=== PATIENT | male | born 1945 | race Caucasian/White ===

== ENCOUNTER → 2017-07-30 09:49 | Outpatient (CLI) | payer MEDICARE, BC, SELFPAY ==
[2017-07-30 12:31] LABS: Anion Gap 9 (5-15); BUN 21 mg/dL (7-18); BUN/Creat Ratio 19.4 RATIO (10-20); Calcium,Total 8.6 mg/dL (8.5-10.1); Chloride 107 mmol/L (98-107); Creatinine, Serum 1.08 mg/dL (0.70-1.30); EST Glomerular Filtration Rate 71 mL/min (>60); Est Glom Filt Rate - Afr Amer 86 mL/min (>60); Glucose 85 mg/dL (74-106); PSA,Total - Annual Screen 7.25 ng/mL (0.00-4.00); Potassium 3.3 mmol/L (3.5-5.1); Sodium Level 141 mmol/L (136-145)
== END ==
PROVIDERS: Family Provider Family Medicine; PCP Family Medicine; Visit Provider Family Medicine
DX: R97.20 Elevated prostate specific antigen [PSA] (principal); I10 Essential (primary) hypertension; Z12.5 Encounter for screening for malignant neoplasm of prostate
CPT/HCPCS: 36415; 80048; 84153; G0103

== ENCOUNTER → 2018-01-31 10:19 | Outpatient (CLI) | payer MEDICARE, BC, SELFPAY ==
[2018-01-31 12:34] LABS: Anion Gap 9 (5-15); BUN 16 mg/dL (7-18); BUN/Creat Ratio 13.4 RATIO (10-20); Chloride 106 mmol/L (98-107); Creatinine, Serum 1.19 mg/dL (0.70-1.30); EST Glomerular Filtration Rate 64 mL/min (>60); Est Glom Filt Rate - Afr Amer 77 mL/min (>60); Glucose 89 mg/dL (74-106); Potassium 3.5 mmol/L (3.5-5.1); Sodium Level 141 mmol/L (136-145)
== END ==
PROVIDERS: Family Provider Family Medicine; PCP Family Medicine; Visit Provider Family Medicine
DX: I10 Essential (primary) hypertension (principal)
CPT/HCPCS: 36415; 80048

== ENCOUNTER → 2019-02-01 09:52 | Outpatient (CLI) | payer MEDICARE, BC, SELFPAY ==
[2019-02-01 13:15] LABS: BUN 19 mg/dL (7-18); Creatinine, Serum 1.11 mg/dL (0.70-1.30); Glucose 79 mg/dL (74-106)
[2019-02-01 13:16] LABS: Anion Gap 10 (5-15); BUN/Creat Ratio 17.1 RATIO (10-20); Chloride 109 mmol/L (98-107); Cholesterol 144 mg/dL (200); EST Glomerular Filtration Rate 69 mL/min (>60); Est Glom Filt Rate - Afr Amer 83 mL/min (>60); High Density Lipoprotein 52 mg/dL; PSA,Total - Annual Screen 7.03 ng/mL (0.00-4.00); Potassium 3.5 mmol/L (3.5-5.1); Sodium Level 143 mmol/L (136-145); Triglycerides 100 mg/dL; Very Low Density Lipoprotein 20 mg/dL (5-40)
== END ==
PROVIDERS: Family Provider Family Medicine; PCP Family Medicine; Referring Provider Family Medicine; Visit Provider Family Medicine
DX: I10 Essential (primary) hypertension (principal); R97.20 Elevated prostate specific antigen [PSA]; Z12.5 Encounter for screening for malignant neoplasm of prostate
CPT/HCPCS: 36415; 80048; 80061; 84153; G0103

== ENCOUNTER → 2020-02-02 10:41 | Outpatient (CLI) | payer MEDICARE, BC, SELFPAY ==
[2020-02-02 13:04] LABS: Anion Gap 8 (5-15); BUN 16 mg/dL (7-18); BUN/Creat Ratio 13.7 RATIO (10-20); Chloride 111 mmol/L (98-107); Cholesterol 170 mg/dL (200); Creatinine, Serum 1.17 mg/dL (0.70-1.30); EST Glomerular Filtration Rate 65 mL/min (>60); Est Glom Filt Rate - Afr Amer 78 mL/min (>60); Glucose 113 mg/dL (74-106); High Density Lipoprotein 42 mg/dL; Potassium 2.8 mmol/L (3.5-5.1); Sodium Level 145 mmol/L (136-145); Triglycerides 233 mg/dL; Very Low Density Lipoprotein 47 mg/dL (5-40)
== END ==
PROVIDERS: PCP Family Medicine; Referring Provider Family Medicine; Visit Provider Family Medicine
DX: I10 Essential (primary) hypertension (principal); Z12.5 Encounter for screening for malignant neoplasm of prostate; R97.20 Elevated prostate specific antigen [PSA]
CPT/HCPCS: 36415; 80048; 80061; 84153; G0103

== ENCOUNTER → 2020-02-12 10:09 | Outpatient (CLI) | payer MEDICARE, BC, SELFPAY ==
[2020-02-12 12:38] LABS: Anion Gap 9 (5-15); BUN 15 mg/dL (7-18); BUN/Creat Ratio 12.5 RATIO (10-20); Calcium,Total 8.9 mg/dL (8.5-10.1); Chloride 108 mmol/L (98-107); Cholesterol 157 mg/dL (200); EST Glomerular Filtration Rate 63 mL/min (>60); Est Glom Filt Rate - Afr Amer 76 mL/min (>60); Glucose 94 mg/dL (74-106); High Density Lipoprotein 42 mg/dL; PSA,Total - Annual Screen 7.03 ng/mL (0.00-4.00); Potassium 3.2 mmol/L (3.5-5.1); Sodium Level 143 mmol/L (136-145); Triglycerides 159 mg/dL; Very Low Density Lipoprotein 32 mg/dL (5-40)
== END ==
PROVIDERS: PCP Family Medicine; Visit Provider Family Medicine
DX: I10 Essential (primary) hypertension (principal); R97.20 Elevated prostate specific antigen [PSA]; Z12.5 Encounter for screening for malignant neoplasm of prostate
CPT/HCPCS: 36415; 80048; 80061; 84153; G0103

== ENCOUNTER → 2020-02-26 10:42 | Outpatient (CLI) | payer MEDICARE, BC, SELFPAY ==
[2020-02-26 13:20] LABS: Anion Gap 5 (5-15); BUN 14 mg/dL (7-18); BUN/Creat Ratio 11.3 RATIO (10-20); Calcium,Total 9.3 mg/dL (8.5-10.1); Chloride 110 mmol/L (98-107); Creatinine, Serum 1.24 mg/dL (0.70-1.30); EST Glomerular Filtration Rate 61 mL/min (>60); Est Glom Filt Rate - Afr Amer 73 mL/min (>60); Glucose 90 mg/dL (74-106); Potassium 3.5 mmol/L (3.5-5.1); Sodium Level 143 mmol/L (136-145)
== END ==
PROVIDERS: PCP Family Medicine; Referring Provider Family Medicine; Visit Provider Family Medicine
DX: E87.6 Hypokalemia (principal)
CPT/HCPCS: 36415; 80048

== ENCOUNTER → 2020-07-26 09:55 | Outpatient (CLI) | payer MEDICARE, BC, SELFPAY ==
[2020-07-26 13:00] LABS: Anion Gap 5 (5-15); BUN 15 mg/dL (7-18); BUN/Creat Ratio 12.6 RATIO (10-20); Calcium,Total 9.1 mg/dL (8.5-10.1); Chloride 106 mmol/L (98-107); Creatinine, Serum 1.19 mg/dL (0.70-1.30); EST Glomerular Filtration Rate 63 mL/min (>60); Est Glom Filt Rate - Afr Amer 77 mL/min (>60); Glucose 83 mg/dL (74-106); Potassium 3.1 mmol/L (3.5-5.1); Sodium Level 140 mmol/L (136-145)
[2020-07-26 13:27] LABS: Microalbumin,Random Urine < 5.0 mg/L (NO RANGE EST.)
== END ==
PROVIDERS: PCP Family Medicine; Referring Provider Family Medicine; Visit Provider Family Medicine
DX: I10 Essential (primary) hypertension (principal); R97.20 Elevated prostate specific antigen [PSA]
CPT/HCPCS: 36415; 80048; 82043; 82570; 84153

== ENCOUNTER → 2020-08-09 08:17 | Outpatient (CLI) | payer MEDICARE, BC, SELFPAY ==
[2020-08-09 10:46] LABS: Anion Gap 4 (5-15); BUN 14 mg/dL (7-18); BUN/Creat Ratio 11.8 RATIO (10-20); Calcium,Total 9.1 mg/dL (8.5-10.1); Chloride 110 mmol/L (98-107); Creatinine, Serum 1.19 mg/dL (0.70-1.30); EST Glomerular Filtration Rate 63 mL/min (>60); Est Glom Filt Rate - Afr Amer 77 mL/min (>60); Glucose 91 mg/dL (74-106); PSA,Total- Diagnostic 7.54 ng/mL (0.0-4.0); Potassium 3.6 mmol/L (3.5-5.1); Sodium Level 142 mmol/L (136-145)
== END ==
PROVIDERS: PCP Family Medicine; Visit Provider Family Medicine
DX: R97.20 Elevated prostate specific antigen [PSA] (principal); I10 Essential (primary) hypertension
CPT/HCPCS: 36415; 80048; 84153

== ENCOUNTER 2021-01-06 13:42 | Emergency (ER) | payer MEDICARE, BC, SELFPAY ==
[2021-01-06 13:42] VITALS: BP 129/79; PULSE 72; RESP 20; TEMP 37.6; O2SAT 97; BMI 25.3
--- NOTE | 2021-01-06 15:40 | RAD_ITS ---
STUDY: X-RAY CHEST REASON FOR EXAM: Male, 75 years old. sob TECHNIQUE: Single AP portable view of the chest. COMPARISON: None. FINDINGS: Patchy alveolar opacities in both lungs consistent with bilateral pneumonia. There is no demonstrated pleural abnormality. Normal size heart. Normal mediastinum and ayesha. Normal visualized pulmonary arteries. Normal visualized aortic arch and descending thoracic aorta. Normal visualized thoracic spine. Normal visualized ribs, clavicles, and shoulders. There is no demonstrated abnormality of the visualized soft tissue structures of the upper abdomen. RAD/Chest 1 View (Portable) IMPRESSION: Patchy bilateral pneumonia. Electronically Signed: Lennox Huston MD at 16:01 EDT Tel , Service support ,
[2021-01-06 15:42] VITALS: PULSE 71; RESP 18; O2SAT 97
[2021-01-06 15:47] VITALS: RESP 18; O2SAT 97
--- NOTE | 2021-01-06 16:02 | EKG12_ITS ---
Test Reason : COUGH Blood Pressure : / mmHG Vent. Rate : 071 BPM Atrial Rate : 071 BPM P-R Int : 152 ms QRS Dur : 128 ms QT Int : 398 ms P-R-T Axes : -04 -35 106 degrees QTc Int : 432 ms Normal sinus rhythm Left axis deviation Left bundle branch block Abnormal ECG Confirmed by ABNER RAM, ANDRÉS ([id number]), editor dictionary ERIK SARGENT ([id number]) on 01/07/2021 1:52:22 PM Referred By: DEBORAH Confirmed By:ANDRÉS LEVINE MD
--- NOTE | 2021-01-06 16:03 | EX.ED.DYSGE1 ---
HPI History of Present Illness Chief Complaint: General Illness Narrative Narrative: Patient presenting with fever, chills, cough since Wednesday. Patient states he has had low-grade fevers with a T-max of 101.8. He states he only took something for a fever today and states he took Aleve prior to coming. Patient states he has decreased p.o. intake because he is just not hungry but is able to eat and drink without nausea or vomiting. He denies diarrhea. Patient denies any chest pain and he only feels short of breath when he is coughing. Patient does state that there is a sensitive spot on the top of his head that hurts when he coughs. He feels like it is tender to touch. Nobody in his family can see anything abnormal. He denies any head injury. Patient states that he also has been having urinary incontinence for the last couple of days. He denies dysuria. He states he has a history of BPH. Patient has been vaccinated for COVID-19 and has had no known sick contacts. [facility] Medical History Hypertension Home Medications Potassium Chloride 20 mg PO DAILY 03/27/13 [History Last Taken Unknown] Urinozinc 2 tab 03/27/13 [History Last Taken Unknown] amlodipine 5 mg PO DAILY 03/27/13 [History Last Taken Unknown] antiarthritic combination no.2 [Glucosamine-Chondroitin] 900 mg PO TID 03/27/13 [History Last Taken Unknown] ascorbic acid (vitamin C) [Vitamin C] 2,000 mg PO DAILY 03/27/13 [History Last Taken Unknown] cholecalciferol (vitamin D3) [Vitamin D] 2,000 unit PO DAILY 03/27/13 [History Last Taken Unknown] hydrochlorothiazide 25 mg PO DAILY 03/27/13 [History Last Taken Unknown] vitamin E (dl, acetate) 800 units PO DAILY 03/27/13 [History Last Taken Unknown] Allergy/AdvReac Type Severity Reaction Status Date / Time No Known Allergies Allergy Verified 12/16/20 12:43 Social History Smoking Status: Never smoker ROS ROS ED Constitutional Constitutional ED: Reports chills and fever(s) Eyes Eyes: Denies blurry vision or diplopia ENT ENT ED: Reports sore throat; Denies rhinorrhea Cardiovascular Cardiovascular: Denies chest pain or palpitations Respiratory/Chest Respiratory/Chest: Reports cough; Denies sputum Gastrointestinal Gastrointestinal: Denies abdominal pain, nausea or vomiting Genitourinary Genitourinary ED: Reports other Details: Urinary incontinence Musculoskeletal Musculoskeletal: Reports myalgias; Denies arthralgias, back pain or neck pain Integumentary Denies Abrasions or rash Neurologic Neurologic: Reports other Details: Painful spot at the top of head 1 coughing ; Denies paresthesias EXAM Physical Exam Const Vital Signs: 01/06/21 13:42 01/06/21 15:42 01/06/21 15:47 Temperature 99.7 F H Temperature Source Temporal Pulse Rate 72 71 Respiratory Rate 20 H 18 18 Blood Pressure 129/79 H Blood Pressure Mean 95 Pulse Ox 97 97 97 Oxygen Delivery Method Room Air Room Air 01/06/21 17:10 01/06/21 17:36 Temperature Temperature Source Pulse Rate 67 70 Respiratory Rate 16 17 Blood Pressure 157/78 H 157/84 H Blood Pressure Mean 104 Pulse Ox 95 96 Oxygen Delivery Method Room Air Positive well nourished General Appearance ED: NAD HEENT Reports moist mucous membranes HEENT Narrative: Tender area to the vertex of the scalp without cellulitic change, deformity. Negative for trauma Eyes PERRL and EOMs intact bilaterally Neck no lymphadenopathy and supple Resp normal respiratory effort and clear to auscultation bilaterally Cardio regular rate and regular rhythm GI normal to inspection, nondistended, normoactive bowel sounds Neuro oriented x3 and CN's II-XII intact bilaterally Sensorium / Orientation: alert Psych mental status grossly normal Skin no rashes or lesions noted and no wounds MDM MDM MDM Narrative Medical decision making narrative: Patient presenting with viral symptoms. He tested positive for COVID-19 today. Chest x-ray my interpretation shows bilateral pulmonary infiltrates. His lab work shows no leukocytosis. Hemoglobin hematocrit are stable. Platelets are normal. Patient is lymphopenic. Patient's creatinine is slightly increased at 1.33. Potassium 3.1. Other electrolytes are normal. LFTs are normal. Procalcitonin negative. I did check a urinalysis because of his urinary frequency and is just that his urine bacteria without leukocyte esterase or nitrites. This was sent for culture. Patient is within the timeframe for monoclonal antibodies and I did put a consult in for this. Patient will be given discharge instructions to follow-up for this. Currently the patient has normal vital signs and is maintaining O2 sats of 96-97 on room air and is not tachypneic. Patient counseled use ibuprofen and Tylenol alternating doses to control fevers. Encouraged to drink more fluids. I spoke with his daughter who will ensure that she has some way to measure how much he is actually drinking because he has been drinking less. I discussed at length with him how to measure the pulse oximeter monitoring and when to return. I spoke with the on-call physician for his primary care doctor Dr. Dennis Rodriguez to obtain close follow-up. He states he will put a note in the computer for a telehealth visit tomorrow the next day. Patient discharged home in stable condition. Current: 1. Dehydration 2. COVID-19 pneumonitis Lab Data Labs: Laboratory Results - last 24 hr 01/06/21 01/06/21 01/06/21 14:40 15:40 15:40 WBC 5.7 RBC 4.24 L Hgb 13.0 Hct 39.4 L MCV 92.9 MCH 30.7 MCHC 33.0 RDW Std Deviation 43.8 RDW Coeff of Lorenzo 12.8 Plt Count 130 L MPV 11.0 Immature Gran % (Auto) 0.300 Neut % (Auto) 74.8 H Lymph % (Auto) 13.4 L [place] % (Auto) 11.3 H Eos % (Auto) 0.0 Baso % (Auto) 0.2 Absolute Neuts (auto) 4.3 Absolute Lymphs (auto) 0.77 L Nucleated RBC % 0 Sodium 138 Potassium 3.1 L Chloride 103 Carbon Dioxide 28.0 Anion Gap 7 BUN 21 H Creatinine 1.33 H Estim Creat Clear Calc 41.74 Est GFR (MDRD) Af Amer 67 Est GFR (MDRD) Non-Af 56 L BUN/Creatinine Ratio 15.8 Glucose 102 Calcium 8.4 L Total Bilirubin 0.50 AST 36 ALT 44 Alkaline Phosphatase 57 Troponin I High Sens 22 Total Protein 7.7 Albumin 3.6 Globulin 4.1 Albumin/Globulin Ratio 0.9 Procalcitonin Urine Color Yellow Urine Clarity Sl Cldy Urine pH 5.0 Ur Specific [place] 1.020 Urine Protein 15 H Urine Glucose (UA) Normal Urine Ketones Negative Urine Occult Blood 25 H Urine Nitrite Negative Urine Bilirubin Negative Urine Urobilinogen Normal Ur Leukocyte Esterase Negative Urine RBC 0 SEEN Urine WBC 0 SEEN Ur Squamous Epith Cells 0 SEEN Urine Bacteria RARE Urine Mucus 0 SEEN 01/06/21 16:05 WBC RBC Hgb Hct MCV MCH MCHC RDW Std Deviation RDW Coeff of Lorenzo Plt Count MPV Immature Gran % (Auto) Neut % (Auto) Lymph % (Auto) [place] % (Auto) Eos % (Auto) Baso % (Auto) Absolute Neuts (auto) Absolute Lymphs (auto) Nucleated RBC % Sodium Potassium Chloride Carbon Dioxide Anion Gap BUN Creatinine Estim Creat Clear Calc Est GFR (MDRD) Af Amer Est GFR (MDRD) Non-Af BUN/Creatinine Ratio Glucose Calcium Total Bilirubin AST ALT Alkaline Phosphatase Troponin I High Sens Total Protein Albumin Globulin Albumin/Globulin Ratio Procalcitonin 0.16 H Urine Color Urine Clarity Urine pH Ur Specific [place] Urine Protein Urine Glucose (UA) Urine Ketones Urine Occult Blood Urine Nitrite Urine Bilirubin Urine Urobilinogen Ur Leukocyte Esterase Urine RBC Urine WBC Ur Squamous Epith Cells Urine Bacteria Urine Mucus Radiography Diagnostic Testing: Radiology Impression Chest X-Ray 01/06/21 15:40 IMPRESSION: Patchy bilateral pneumonia. Electronically Signed: Lennox Huston MD at 16:01 EDT Tel , Service support , Discharge Plan Triage Chief Complaint: General Illness ED Provider: Jonh Muse Dx/Rx/DC Orders Clinical Impression: COVID-19 Instructions: Coronavirus Disease 2019 (COVID-19): Caring for Yourself or Others Prescriptions: No Action amlodipine 5 MG tablet 5 mg PO DAILY RF: 0 ascorbic acid (vitamin C) [Vitamin C] 500 MG tablet 2,000 mg PO DAILY RF: 0 hydrochlorothiazide 25 MG tablet 25 mg PO DAILY RF: 0 cholecalciferol (vitamin D3) [Vitamin D3] 2,000 UNIT tablet 2,000 unit PO DAILY RF: 0 vitamin E (dl, acetate) 400 UNITS capsule 800 units PO DAILY RF: 0 glucosamine-chondroitin 900 MG tablet 900 mg PO TID RF: 0 Potassium Chloride 20 mg PO DAILY RF: 0 Urinozinc 2 tab RF: 0 Other Ambulatory Orders: COVID Outpatient Monoclonal Antibody Referral (Routine) Timeframe: 1 Day Facility: [facility] - Location: [facility] [place] Ordered By: Dr. Jonh Muse Primary Care Provider: Virginia Zazueta Referrals: Virginia Zazueta MD [Primary Care Provider] - Disposition Disposition: Home, Self Care
[2021-01-06 16:18] LABS: Absolute Lymphocyte Count 0.77 X10^3/uL (0.83-4.51); Absolute Neutrophil Count 4.3 X10^3/uL (2.0-7.7); Basophil# 0.01 X10^3/uL; Basophil% 0.2 % (0-1); Hematocrit 39.4 % (40-54); Lymphocyte # 0.77 X10^3/ul (0.83-4.51); Lymphocyte % 13.4 % (19-41); Mean Corpuscular Hgb 30.7 pg (27.0-32.0); Mean Corpuscular Volume 92.9 fL (80-94); Monocyte# 0.65 X10^3/uL; Monocyte% 11.3 % (0-10); NRBC Flagged by Analyzer 0 % (0-5); Neutrophil # 4.29 X10^3/uL (2.7-7.7); Neutrophil % 74.8 % (47-70); Platelet Count 130 K/mm3 (150-450); RBC Distribution Width CV 12.8 % (11.6-14.6); RBC Distribution Width SD 43.8 fl (35.1-43.9); Red Blood Count 4.24 M/mm3 (4.6-6.2); White Blood Count 5.7 K/mm3 (4.4-11.0)
[2021-01-06 16:30] LABS: ALB/GLOB Ratio 0.9 RATIO (0.9-2.4); AST(SGOT) 36 U/L (15-37); Alanine Aminotransfer ALT/SGPT 44 U/L (16-61); Albumin, Serum 3.6 g/dL (3.2-5.0); Alkaline Phosphatase 57 U/L (45-117); Anion Gap 7 (5-15); BUN 21 mg/dL (7-18); BUN/Creat Ratio 15.8 RATIO (10-20); Calcium,Total 8.4 mg/dL (8.5-10.1); Chloride 103 mmol/L (98-107); Creatinine, Serum 1.33 mg/dL (0.70-1.30); EST Glomerular Filtration Rate 56 mL/min (>60); Est Glom Filt Rate - Afr Amer 67 mL/min (>60); Estimated Creatinine Clearance 41.74 ml/min; Globulin 4.1 g/dL (2.2-4.2); Glucose 102 mg/dL (74-106); Potassium 3.1 mmol/L (3.5-5.1); Protein, Total 7.7 g/dL (6.4-8.2); Sodium Level 138 mmol/L (136-145); Troponin-I HS 22 pg/mL (3.0-78.0)
[2021-01-06 16:48] LABS: Mucous, Urine 0 SEEN /hpf (<or=2+); Red Blood Cells-Urine 0 SEEN /hpf (0-5); Squamous Epithelial Cells - UA 0 SEEN /hpf (0-5); White Blood Cells 0 SEEN /hpf (0-5)
[2021-01-06 16:50] LABS: Glucose, Dipstick Normal (Normal); Ketone-Dipstick Negative (Negative); Leukocyte Esterase-Dipstick Negative /ul (Negative); Nitrite-Dipstick Negative (Negative); Occult Blood-Urine 25 /ul (Negative); Protein-Dipstick 15 mg/dl (Negative); Urine Bilirubin Dipstick Negative (Negative); Urine Urobilinogen Normal (Normal)
[2021-01-06 16:52] LABS: Procalcitonin 0.16 ng/mL (0.00-0.09)
[2021-01-06 16:52] LABS: Color, Urine Yellow (Yellow); Urine Clarity Sl Cldy (Clear)
[2021-01-06 17:05] LABS: Bacteria RARE /hpf (None Seen)
[2021-01-06 17:10] VITALS: BP 157/78; PULSE 67; RESP 16; O2SAT 95
[2021-01-06 17:36] VITALS: BP 157/84; PULSE 70; RESP 17; O2SAT 96
== END 2021-01-06 17:43 | disposition home or self-care (01) ==
PROVIDERS: Emergency Provider Student in an Organized Health Care Education/Training Program; PCP Family Medicine
DX: U07.1 COVID-19 (principal); J12.82 Pneumonia due to coronavirus disease 2019; E86.0 Dehydration; I10 Essential (primary) hypertension; I44.7 Left bundle-branch block, unspecified; N40.0 Benign prostatic hyperplasia without lower urinary tract symptoms
CPT/HCPCS: 71045; 80053; 81001; 84145; 84484; 85025; 87086; 87426; 93005; 99284; A4216

== ENCOUNTER 2021-01-08 13:36 | Outpatient (CLI) | payer MEDICARE, BC, SELFPAY ==
[2021-01-08] MEDS: 0.9% Saline Lock 10 ML Syringe IV (14:02)
[2021-01-08 14:05] VITALS: BP 134/54; PULSE 86; RESP 16; TEMP 37.3; BMI 24.1
[2021-01-08 14:55] VITALS: BP 143/60; PULSE 80; RESP 18; TEMP 37; O2SAT 97
[2021-01-08 15:53] VITALS: BP 146/58; PULSE 78; RESP 18; TEMP 37.2; O2SAT 95
== END 2021-01-08 15:56 | disposition home or self-care (01) ==
LOC: ICUOUT 13:36 → MS3 13:37
PROVIDERS: PCP Family Medicine; Referring Provider Nurse Practitioner Acute Care; Visit Provider Nurse Practitioner Acute Care
DX: Z23 Encounter for immunization (principal); U07.1 COVID-19
CPT/HCPCS: J7050; M0245; Q0245; A4216

== ENCOUNTER → 2021-01-27 10:48 | Outpatient (CLI) | payer MEDICARE, BC, SELFPAY ==
[2021-01-27 12:18] LABS: Anion Gap 10 (5-15); BUN 10 mg/dL (7-18); BUN/Creat Ratio 8.5 RATIO (10-20); Calcium,Total 9.1 mg/dL (8.5-10.1); Chloride 105 mmol/L (98-107); Cholesterol 145 mg/dL (200); Creatinine, Serum 1.18 mg/dL (0.70-1.30); EST Glomerular Filtration Rate 64 mL/min (>60); Est Glom Filt Rate - Afr Amer 77 mL/min (>60); Glucose 91 mg/dL (74-106); High Density Lipoprotein 42 mg/dL; Potassium 3.7 mmol/L (3.5-5.1); Sodium Level 142 mmol/L (136-145); Triglycerides 157 mg/dL; Very Low Density Lipoprotein 31 mg/dL (5-40)
[2021-01-27 12:29] LABS: Microalbumin,Random Urine < 5.0 mg/L (NO RANGE EST.)
== END ==
PROVIDERS: PCP Family Medicine; Visit Provider Family Medicine
DX: I10 Essential (primary) hypertension (principal); R97.20 Elevated prostate specific antigen [PSA]
CPT/HCPCS: 36415; 80048; 80061; 82043; 82570

== ENCOUNTER → 2021-02-13 09:38 | Outpatient (CLI) | payer MEDICARE, BC, SELFPAY ==
[2021-02-13 12:07] LABS: Erythrocyte Sedimentation Rate 23 mm/hr (0-20)
[2021-02-13 12:22] LABS: Uric Acid 7.6 mg/dL (3.5-7.2)
== END ==
PROVIDERS: PCP Family Medicine; Referring Provider Family Medicine; Visit Provider Family Medicine
DX: I10 Essential (primary) hypertension (principal); M10.9 Gout, unspecified; R97.20 Elevated prostate specific antigen [PSA]; Z12.5 Encounter for screening for malignant neoplasm of prostate
CPT/HCPCS: 36415; 84153; 84550; 85652; G0103

== ENCOUNTER 2021-07-30 13:46 | Outpatient (CLI) | payer MEDICARE, BC, SELFPAY ==
[2021-07-30 15:57] LABS: Anion Gap 9 (5-15); BUN 19 mg/dL (7-18); Calcium,Total 9.2 mg/dL (8.5-10.1); Chloride 110 mmol/L (98-107); Creatinine, Serum 1.27 mg/dL (0.70-1.30); EST Glomerular Filtration Rate 59 mL/min (>60); Est Glom Filt Rate - Afr Amer 71 mL/min (>60); Glucose 83 mg/dL (74-106); PSA,Total- Diagnostic 9.38 ng/mL (0.0-4.0); Potassium 3.2 mmol/L (3.5-5.1); Sodium Level 142 mmol/L (136-145)
== END 2021-07-30 23:59 | disposition home or self-care (01) ==
PROVIDERS: PCP Family Medicine; Referring Provider Family Medicine; Visit Provider Family Medicine
DX: Z00.00 Encounter for general adult medical examination without abnormal findings (principal); I10 Essential (primary) hypertension; R97.20 Elevated prostate specific antigen [PSA]
CPT/HCPCS: 36415; 80048; 84153

== ENCOUNTER → 2021-08-14 | Outpatient (CLI) | payer MEDICARE, BC, SELFPAY ==
[2021-08-14 10:37] LABS: Anion Gap 9 (5-15); BUN 18 mg/dL (7-18); BUN/Creat Ratio 15.5 RATIO (10-20); Calcium,Total 9.1 mg/dL (8.5-10.1); Chloride 110 mmol/L (98-107); Creatinine, Serum 1.16 mg/dL (0.70-1.30); EST Glomerular Filtration Rate 65 mL/min (>60); Est Glom Filt Rate - Afr Amer 79 mL/min (>60); Glucose 84 mg/dL (74-106); Potassium 3.3 mmol/L (3.5-5.1); Sodium Level 143 mmol/L (136-145)
== END | disposition home or self-care (01) ==
LOC: MFPLAB 08:22
PROVIDERS: PCP Family Medicine; Referring Provider Family Medicine; Visit Provider Family Medicine
DX: E87.6 Hypokalemia (principal)
CPT/HCPCS: 36415; 80048

== ENCOUNTER → 2022-01-27 | Outpatient (CLI) | payer MEDICARE, BC, SELFPAY ==
[2022-01-27 13:10] LABS: Anion Gap 11 (5-15); BUN 21 mg/dL (7-18); BUN/Creat Ratio 18.3 RATIO (10-20); Calcium,Total 9.5 mg/dL (8.5-10.1); Chloride 110 mmol/L (98-107); Creatinine, Serum 1.15 mg/dL (0.70-1.30); EST Glomerular Filtration Rate 66 mL/min (>60); Est Glom Filt Rate - Afr Amer 79 mL/min (>60); Glucose 72 mg/dL (74-106); Potassium 3.4 mmol/L (3.5-5.1); Sodium Level 144 mmol/L (136-145)
== END | disposition home or self-care (01) ==
PROVIDERS: PCP Family Medicine; Referring Provider Family Medicine; Visit Provider Family Medicine
DX: I10 Essential (primary) hypertension (principal)
CPT/HCPCS: 36415; 80048

== ENCOUNTER 2022-06-19 10:16 | Emergency (ER) | payer MEDICARE, OTHER, SELFPAY ==
[2022-06-19 10:17] VITALS: BP 176/81; PULSE 72; RESP 14; TEMP 36.4; O2SAT 99; BMI 24.7
--- NOTE | 2022-06-19 10:35 | EX.ED.DYSGE1 ---
HPI History of Present Illness Chief Complaint: Abscess Informant: patient Onset/Context/Timing Onset: Days (5) Context: Gradual Onset Timing: Continuous Quality: Purulent drainage Location: Gluteal cleft Worsened by: Nothing Relieved by: Draining Narrative Narrative: Patient presents with abscess to his gluteal area that began 5 days ago. Patient states it opened and started draining 2 days ago. Patient states that that helped with the pain. Patient states she has been having some purulent and bloody drainage from the area. Patient states nothing makes it worse. Patient denies any nausea or vomiting. Patient admits to occasional abdominal pain that only lasted a couple seconds. Patient states he had 2 episodes of that earlier this week. Patient denies any other abdominal pain. Patient admits to subjective fevers. Patient states he had an episode of constipation earlier this week but now his bowels are moving normally. [facility] Medical History (Updated 06/19/22 @ 10:[address] Julio Olson DO) Hypertension Home Medications Potassium Chloride 20 mg PO DAILY 03/27/13 [History Last Taken Unknown] Urinozinc 2 tab PO/SL DAILY 03/27/13 [History Last Taken Unknown] amlodipine 5 mg tablet 5 mg PO DAILY 03/27/13 [History Last Taken Unknown] antiarthritic combination no.2 900 mg tablet (glucosamine-chondroitin) 900 mg PO TID 03/27/13 [History Last Taken Unknown] ascorbic acid (vitamin C) 500 mg tablet (Vitamin C) 2,000 mg PO DAILY 03/27/13 [History Last Taken Unknown] cholecalciferol (vitamin D3) 50 mcg (2,000 unit) tablet (Vitamin D3) 2,000 unit PO DAILY 03/27/13 [History Last Taken Unknown] hydrochlorothiazide 25 mg tablet 25 mg PO DAILY 03/27/13 [History Last Taken Unknown] vitamin E (dl, acetate) 180 mg (400 unit) capsule 800 units PO DAILY 03/27/13 [History Last Taken Unknown] cephalexin 500 mg capsule 500 mg PO Q6 #40 CAPSULES 06/19/22 [Rx Last Taken Unknown] Allergy/AdvReac Type Severity Reaction Status Date / Time No Known Allergies Allergy Verified 06/19/22 10:17 Surgical History (Updated 06/19/22 @ 10:[address] Julio Olson DO) History of bilateral inguinal herniorrhaphies Social History Smoking Status: Never smoker ROS ROS ED Constitutional Constitutional ED: Reports fever(s) and subjective; Denies chills Eyes Eyes: Denies blurry vision or change in vision ENT ENT ED: Denies rhinorrhea or sore throat Cardiovascular Cardiovascular: Denies chest pain or palpitations Respiratory/Chest Respiratory/Chest: Denies cough or dyspnea Gastrointestinal Gastrointestinal: Reports abdominal pain and constipation; Denies nausea or vomiting Genitourinary Genitourinary ED: Reports urinary frequency; Denies dysuria or hematuria Musculoskeletal Musculoskeletal: Denies back pain or neck pain Integumentary Reports abscess; Denies rash Neurologic Neurologic: Denies headache(s) or weakness Allergic/Immunologic Allergic/Immunologic ED: Denies mouth swelling or urticaria EXAM Physical Exam Const Vital Signs: 06/19/22 10:17 Temperature 97.6 F L Temperature Source Temporal Pulse Rate 72 Respiratory Rate 14 Blood Pressure 176/81 H Blood Pressure Mean 112 Pulse Ox 99 Oxygen Delivery Method Room Air Positive well nourished and well developed General Appearance ED: well developed and NAD HEENT Reports moist mucous membranes GI non-tender Palpation: soft Rectal Exam: other Other Details: There is an open area that is draining purulent drainage in the midline just superior to the rectum. There is some surrounding induration. There is mild erythema. There is mild tenderness over this area. There are external hemorrhoids noted. There is no bleeding or tenderness over the hemorrhoids. Neuro oriented x3, CN's II-XII intact bilaterally and no sensory deficits noted Sensorium / Orientation: alert Motor Exam: strength 5/5 throughout Psych mental status grossly normal MDM MDM MDM Narrative Medical decision making narrative: Patient was advised that this most likely a cutaneous abscess. Since it is already open and draining, incision and drainage is not necessary. Patient was given a prescription for Keflex. Patient was given his first dose here. Patient was instructed to continue to keep the area open and draining. Patient was instructed to use warm sits baths. Patient was instructed to follow-up with his primary care physician in 5 to 7 days for reevaluation. Patient understood and was agreeable with plan. All questions were answered. Discharge Plan Triage Chief Complaint: Abscess ED Provider: Julio Olson Dx/Rx/DC Orders Clinical Impression: Abscess, gluteal cleft Instructions: ED Abscess Antibiotic Treatment Only Prescriptions: New cephalexin [cephalexin] 500 mg capsule 500 mg PO Q6 Qty: 40 0RF No Action amlodipine 5 MG tablet 5 mg PO DAILY ascorbic acid (vitamin C) [Vitamin C] 500 MG tablet 2,000 mg PO DAILY hydrochlorothiazide 25 MG tablet 25 mg PO DAILY cholecalciferol (vitamin D3) [Vitamin D3] 2,000 UNIT tablet 2,000 unit PO DAILY vitamin E (dl, acetate) 400 UNITS capsule 800 units PO DAILY glucosamine-chondroitin 900 MG tablet 900 mg PO TID Potassium Chloride 20 mg PO DAILY Urinozinc 2 tab PO/SL DAILY Primary Care Provider: Virginia Zazueta Referrals: Virginia Zazueta MD [Primary Care Provider] - 5-7 Days Disposition Disposition: Home, Self Care
[2022-06-19 10:44] VITALS: BP 163/87; PULSE 66; RESP 18; TEMP 36.7; O2SAT 99
[2022-06-19] MEDS: Cephalexin 500 MG Capsule PO (10:54)
== END 2022-06-19 10:56 | disposition home or self-care (01) ==
PROVIDERS: Emergency Provider Emergency Medicine; PCP Family Medicine; Visit Provider Emergency Medicine
DX: L02.31 Cutaneous abscess of buttock (principal); I10 Essential (primary) hypertension
CPT/HCPCS: 99282

== ENCOUNTER 2022-06-22 10:06 | Emergency (ER) | payer MEDICARE, OTHER, SELFPAY ==
[2022-06-22 10:07] VITALS: BP 195/93; PULSE 72; RESP 18; TEMP 35.7; O2SAT 100
--- NOTE | 2022-06-22 10:25 | RAD_ITS ---
STUDY: X-RAY - LEFT FOOT CLINICAL: Male, 76 years old. Swelling at the first metatarsophalangeal joint. TECHNIQUE: 3 view(s) of the foot. COMPARISON: None. FINDINGS: Normal talus, calcaneus, and tarsal bones. Normal visualized subtalar, talonavicular, calcaneocuboid, tarsal and tarsometatarsal articulations. Normal metatarsi. Normal metatarsophalangeal joint of the great toe. There is a bipartite tibial sesamoid. Normal interphalangeal joint of the great toe. Normal phalanges of the great toe. Normal second through fifth metatarsophalangeal joints. Normal interphalangeal joints and phalanges of the lesser toes. Soft tissue swelling overlying the first metatarsophalangeal joint. RAD/Foot min 3 Views IMPRESSION: Soft tissue swelling overlying the first metatarsophalangeal joint. Electronically Signed: Bill Wilcox MD at 10:49 EST ,
--- NOTE | 2022-06-22 10:26 | ED.VIS.LOWEX ---
HPI History of Present Illness Chief Complaint: Lower Extremity Injury Narrative Narrative: 76-year-old male who denies significant past medical history states that he had incision and drainage performed on his buttocks on Wednesday, 4 days ago. He was started on cephalexin. Over the weekend, he started having pain, swelling, and redness in his left foot. He denies any fevers or chills. No nausea or vomiting. He thinks he is having an allergic reaction to the cephalexin because he states that he did not start having pain and swelling of his foot until he started his antibiotic. Additionally, he does relate a history of walking at least 4 miles a day. He denies eating a lot of red meat, or drinking alcohol. He presents because the pain and swelling in his left foot around the MTP joint. Additionally, he relays a remote history that he had COVID toes. [facility] Medical History Hypertension Home Medications Potassium Chloride 20 mg PO TID 03/27/13 [History Last Taken Unknown] Urinozinc 2 tab PO/SL DAILY 03/27/13 [History Last Taken Unknown] amlodipine 5 mg tablet 5 mg PO DAILY 03/27/13 [History Last Taken Unknown] antiarthritic combination no.2 900 mg tablet (glucosamine-chondroitin) 900 mg PO TID 03/27/13 [History Last Taken Unknown] ascorbic acid (vitamin C) 500 mg tablet (Vitamin C) 2,000 mg PO DAILY 03/27/13 [History Last Taken Unknown] cholecalciferol (vitamin D3) 50 mcg (2,000 unit) tablet (Vitamin D3) 2,000 unit PO DAILY 03/27/13 [History Last Taken Unknown] hydrochlorothiazide 25 mg tablet 25 mg PO DAILY 03/27/13 [History Last Taken Unknown] vitamin E (dl, acetate) 180 mg (400 unit) capsule 800 units PO DAILY 03/27/13 [History Last Taken Unknown] cephalexin 500 mg capsule 500 mg PO Q6 #40 CAPSULES 06/19/22 [Rx Last Taken Unknown] Allergy/AdvReac Type Severity Reaction Status Date / Time No Known Allergies Allergy Verified 06/19/22 10:17 Surgical History History of bilateral inguinal herniorrhaphies Social History Smoking Status: Never smoker ROS ROS ED ROS Narrative Constitutional: No fever, no chills. HEENT: No sore throat. No neck pain. No loss of vision. No rhinorrhea. Cardiovascular: No chest pain. No palpitations. No pedal edema. Respiratory: No cough, no shortness of breath. Abdominal: No abdominal pain. No nausea. No vomiting. Genitourinary: No dysuria. No hematuria. Musculoskeletal: No myalgias. Pain, swelling, and redness of left first MTP joint. Neurologic: No headaches. No dizziness. No lightheadedness. Skin: No rash. No change in color. Psychiatric: No depression. No anxiety. EXAM Physical Exam Narrative Exam Narrative: Afebrile. Vital signs noted. HEENT: Normocephalic. Atraumatic. PERRL, EOMI. Neck soft and supple. No point tenderness or step off. Cardiovascular: Regular rate and rhythm. No murmurs, rubs, or gallops appreciated. Respiratory: No tachypnea. Lungs clear to auscultation bilaterally. Gastrointestinal: Abdomen soft, nontender, with normoactive bowel sounds. No rebound or guarding. Neurological: Awake. Alert. Nonfocal, nonlateralizing. Skin: No rash. Normal color. No pallor. Positive erythema first MTP joint, left foot. Musculoskeletal: No pedal edema. Full range of motion extremities. Tenderness at first MTP joint consistent with podagra. Good capillary refill. Const Vital Signs: 06/22/22 10:07 Temperature 96.2 F L Temperature Source Temporal Pulse Rate 72 Respiratory Rate 18 Blood Pressure 195/93 H Blood Pressure Mean 127 Pulse Ox 100 Oxygen Delivery Method Room Air MDM MDM MDM Narrative Medical decision making narrative: I had a lengthy discussion with the patient. I do not feel that this is reaction whether it be allergic or not to the cephalexin. I do feel that it is probably more likely arthritic inflammation, possibly from gout. I did order a uric acid level. X-rays were obtained of the left foot in 3 views and interpreted by myself. My interpretation shows soft tissue swelling over the first MTP joint, but no evidence of a fracture. Additionally, I reviewed the radiology report which does confirm my individual interpretation. Uric acid level is 6.7 and normal, however I did look and he had a uric acid level drawn in 2020 in review of his prior laboratory work, which was elevated. I do feel that he may have gout, but he does not take medication for it. At this point in time, I feel he can be discharged safely home with follow-up to podiatry or his primary care physician. He was reassured that this is not an allergic reaction to the cephalexin. Return instructions to the emergency department were reviewed. Disposition is discharged home in stable condition. History & Record Review Discussion w/independent historian: Patient Additional record(s) reviewed:: Prior labs Lab Data Attestation: I reviewed the patient's lab results. Labs: Laboratory Results - last 24 hr 06/22/22 10:43 Uric Acid 6.7 Radiography Diagnostic Testing: Clinical Impression(s) from Imaging Studies Foot X-Ray 06/22/22 10:25 IMPRESSION: Soft tissue swelling overlying the first metatarsophalangeal joint. Electronically Signed: Bill Wilcox MD at 10:49 EST , Discharge Plan Triage Chief Complaint: Lower Extremity Injury ED Provider: Tarik Blevins Dx/Rx/DC Orders Clinical Impression: Foot swelling, Podagra Instructions: Treating Gout Attacks, ED Gout Prescriptions: No Action amlodipine 5 MG tablet 5 mg PO DAILY ascorbic acid (vitamin C) [Vitamin C] 500 MG tablet 2,000 mg PO DAILY hydrochlorothiazide 25 MG tablet 25 mg PO DAILY cholecalciferol (vitamin D3) [Vitamin D3] 2,000 UNIT tablet 2,000 unit PO DAILY vitamin E (dl, acetate) 400 UNITS capsule 800 units PO DAILY glucosamine-chondroitin 900 MG tablet 900 mg PO TID Potassium Chloride 20 mg PO TID Urinozinc 2 tab PO/SL DAILY cephalexin [cephalexin] 500 mg capsule 500 mg PO Q6 Qty: 40 0RF Primary Care Provider: Virginia Zazueta Referrals: Virginia Zazueta MD [Primary Care Provider] - 3-5 Days Alexander Cantrell DPM [Med Staff - Active Staff] - As soon as possible Disposition Disposition: Home, Self Care
[2022-06-22 11:05] LABS: Uric Acid 6.7 mg/dL (3.5-7.2)
== END 2022-06-22 12:23 | disposition home or self-care (01) ==
PROVIDERS: Emergency Provider Emergency Medicine; PCP Family Medicine; Visit Provider Emergency Medicine
DX: M10.079 Idiopathic gout, unspecified ankle and foot (principal); I10 Essential (primary) hypertension
CPT/HCPCS: 73630; 84550; 99281

== ENCOUNTER → 2022-08-03 | Outpatient (CLI) | payer MEDICARE, OTHER, SELFPAY ==
[2022-08-03 18:27] LABS: PSA,Total - Annual Screen 7.47 ng/mL (0.00-4.00)
== END | disposition home or self-care (01) ==
LOC: MFPLAB 14:53
PROVIDERS: PCP Family Medicine; Visit Provider Family Medicine
DX: Z00.00 Encounter for general adult medical examination without abnormal findings (principal); R97.20 Elevated prostate specific antigen [PSA]; Z12.5 Encounter for screening for malignant neoplasm of prostate
CPT/HCPCS: 36415; 84153; G0103

== ENCOUNTER → 2023-02-08 | Outpatient (CLI) | payer MEDICARE, OTHER, SELFPAY ==
[2023-02-08 18:33] LABS: Anion Gap -5 (5-15); BUN 19 mg/dL (7-18); BUN/Creat Ratio 16.4 RATIO (10-20); Calcium,Total 9.3 mg/dL (8.5-10.1); Chloride 114 mmol/L (98-107); Cholesterol 146 mg/dL (200); Creatinine, Serum 1.16 mg/dL (0.70-1.30); EST Glomerular Filtration Rate 65 mL/min (>60); Est Glom Filt Rate - Afr Amer 78 mL/min (>60); Glucose 89 mg/dL (74-106); High Density Lipoprotein 34 mg/dL; PSA,Total - Annual Screen 8.94 ng/mL (0.00-4.00); Sodium Level 133 mmol/L (136-145); Triglycerides 376 mg/dL; Very Low Density Lipoprotein 75 mg/dL (5-40)
== END | disposition home or self-care (01) ==
LOC: MFPLAB 15:04
PROVIDERS: PCP Family Medicine; Referring Provider Family Medicine; Visit Provider Family Medicine
DX: I10 Essential (primary) hypertension (principal); R97.20 Elevated prostate specific antigen [PSA]
CPT/HCPCS: 36415; 80048; 80061; 84153; G0103

== ENCOUNTER 2023-02-19 16:53 | Outpatient (CLI) | payer MEDICARE, OTHER, SELFPAY ==
[2023-02-19 17:57] LABS: Anion Gap 9 (5-15); BUN 20 mg/dL (7-18); BUN/Creat Ratio 16.7 RATIO (10-20); Calcium,Total 8.7 mg/dL (8.5-10.1); Chloride 110 mmol/L (98-107); EST Glomerular Filtration Rate 62 mL/min (>60); Est Glom Filt Rate - Afr Amer 75 mL/min (>60); Glucose 81 mg/dL (74-106); Potassium 3.2 mmol/L (3.5-5.1); Sodium Level 143 mmol/L (136-145)
== END 2023-02-19 23:59 | disposition home or self-care (01) ==
LOC: MFPLAB 16:57
PROVIDERS: PCP Family Medicine; Visit Provider Family Medicine
DX: I10 Essential (primary) hypertension (principal)
CPT/HCPCS: 36415; 80048

== ENCOUNTER → 2023-12-28 | Outpatient (CLI) | payer MEDICARE, OTHER, SELFPAY ==
[2023-12-28 12:49] LABS: Protein, Urine (Random) 12.9 mg/dL (<11.9); Protein:Creat Ratio 297 mg/g CRE (0-200)
[2023-12-28 12:55] LABS: Anion Gap 7 (5-15); BUN 15 mg/dL (7-18); BUN/Creat Ratio 13.6 RATIO (10-20); Calcium,Total 9.4 mg/dL (8.5-10.1); Chloride 111 mmol/L (98-107); Cholesterol 172 mg/dL (200); EST Glomerular Filtration Rate 69 mL/min (>60); Est Glom Filt Rate - Afr Amer 83 mL/min (>60); Glucose 86 mg/dL (74-106); High Density Lipoprotein 32 mg/dL; PSA,Total- Diagnostic 9.71 ng/mL (0.0-4.0); Potassium 3.4 mmol/L (3.5-5.1); Sodium Level 142 mmol/L (136-145); Triglycerides 460 mg/dL
== END | disposition home or self-care (01) ==
LOC: MFPLAB 10:16
PROVIDERS: PCP Family Medicine; Visit Provider Family Medicine
DX: R97.20 Elevated prostate specific antigen [PSA] (principal); I10 Essential (primary) hypertension
CPT/HCPCS: 36415; 80048; 80061; 82570; 84153; 84156

== ENCOUNTER → 2025-02-06 | Outpatient (CLI) | payer MEDICARE, OTHER, SELFPAY ==
[2025-02-06 10:12] LABS: Hematocrit 37.5 % (40-54); Hemoglobin 13.1 g/dL (13.0-16.5); Mean Corp Hgb Conc 34.9 g/dL (32-36); Mean Corpuscular Volume 89.1 fL (80-94); Mean Platelet Vol. 11.0 fl (6.2-12.0); Platelet Count 202 K/mm3 (150-450); RBC Distribution Width CV 13.2 % (11.6-14.6); RBC Distribution Width SD 42.8 fl (35.1-43.9); Red Blood Count 4.21 M/mm3 (4.6-6.2); White Blood Count 7.4 K/mm3 (4.4-11.0)
[2025-02-06 10:38] LABS: Creatinine, Urine (random) 38.90 mg/dL (39.00-259.00); Microalbumin,Random Urine 13.3 mg/L (<20 mg/L)
[2025-02-06 14:18] LABS: AST(SGOT) 28 U/L (<=37); Alanine Aminotransfer ALT/SGPT 35 U/L (<=46); Albumin, Serum 4.6 g/dL (3.4-4.8); Alkaline Phosphatase 83 U/L (40-129); Anion Gap 15 (5-15); BUN 23 mg/dL (4-19); BUN/Creat Ratio 21.9 RATIO (10-20); Calcium,Total 9.4 mg/dL (7.6-11.0); Carbon Dioxide 22.0 mmol/L (21.0-32.0); Chloride 108 mmol/L (98-108); Cholesterol 141 mg/dL (<=200); Globulin 2.5 g/dL (2.2-4.2); Glucose 85 mg/dL (70-99); Low Density Lipoprotein Calc. 76 mg/dL; PSA,Total - Annual Screen 7.84 ng/mL (0.02-4.00); Potassium 3.1 mmol/L (3.3-5.1); Triglycerides 148 mg/dL; Very Low Density Lipoprotein 30 mg/dL (5-40); Vitamin D,25 Hydroxy 52.7 ng/mL (30-100); cholesterol:hdl ratio screen 3.58
== END | disposition home or self-care (01) ==
LOC: MFPLAB 09:12
PROVIDERS: PCP Family Medicine; Visit Provider Family Medicine
DX: I10 Essential (primary) hypertension (principal); R97.20 Elevated prostate specific antigen [PSA]; E78.5 Hyperlipidemia, unspecified
CPT/HCPCS: 36415; 80053; 80061; 82043; 82306; 82570; 84153; 85027; G0103